=== PATIENT | female | born 1930 | race Caucasian/White ===

== ENCOUNTER 2017-07-27 17:43 | Emergency (ER) | payer OTHER ==
[~2017-07-27] VITALS: Ht 167.6 cm; Wt 76.1 kg
[2017-07-27 18:06] VITALS: TEMP 36.3; Ht 167.6 cm; Wt 76.1 kg
[2017-07-27] MEDS ORDERED: SODIUM CHLORIDE 0.9% 500ML 500 ML IV STA (18:43)
[2017-07-27] MEDS ORDERED: OPTIRAY 320 IV PRN (19:00)
[2017-07-27] MEDS ORDERED: RIVA1TAB4 PO (19:23)
[2017-07-27] MEDS ORDERED: CEFTRIAXONE SOD INJ 1 GM ADDVIAL IV STA (19:47)
[2017-07-27 20:11] LABS: BASO ABS # 0.06 K/uL (0-0.2); EOS % 2.9 %; EOS ABS # 0.17 K/uL (0-0.5); HEMATOCRIT 44.4 % (37-47); HEMOGLOBIN 15.2 g/dL (12.0-16.0); IG# 0.01 K/uL (0.00-0.02); LYMPH ABS # 2.14 K/uL (1.2-3.4); MEAN CELL VOLUME 92.7 fL (80-100); MEAN CORPUSCULAR HEMOGLOBIN 31.7 pg (25-34); MEAN CORPUSCULAR HGB CONC 34.2 g/dl (32-36); MONO % 8.9 %; MONO ABS # 0.53 K/uL (0.11-0.59); NEUT ABS # 3.03 K/uL (1.4-6.5); PLATELET COUNT 234 K/uL (130-400); RED CELL DISTRIBUTION WIDTH CV 12.8 % (11.5-14.5); RED CELL DISTRIBUTION WIDTH SD 42.9 fL (36.4-46.3); WHITE BLOOD COUNT 5.94 K/uL (4.8-10.8)
[2017-07-27 20:36] LABS: ALBUMIN 3.3 gm/dl (3.4-5.0); CALCIUM 9.1 mg/dl (8.5-10.1); CREATININE 0.84 mg/dl (0.60-1.20); TOTAL PROTEIN 8.1 gm/dl (6.4-8.2)
--- NOTE | 2017-07-27 21:42 | DIAGNOSTIC IMAGING REPORT ---
HEAD WITHOUT CONTRAST (CT) CLINICAL HISTORY: 87 years-old Female with BACON. Acute headache with weakness TECHNIQUE: Multiple axial CT images of the head were obtained without contrast. A dose lowering technique was utilized adhering to the principles of ALARA. CT DOSE: 1186.54 mGy.cm COMPARISON: None. FINDINGS: No acute intracranial hemorrhage, midline shift, intracranial mass, hydrocephalus, territorial ischemia or abnormal extra-axial collection. Mild to moderate atrophy with patchy areas of low-attenuation within the white matter of the cerebral hemispheres bilaterally suggesting chronic microvascular ischemic changes. Areas of low-attenuation within the left basal ganglia suggest areas of prior lacunar infarction. Cerebral vascular calcifications are seen at the level of the skull base. The calvarium is intact. Mastoid air cells and middle ear cavities are clear. Severe mucosal opacification of the left sphenoid sinus with mild ethmoid sinus disease. Postsurgical changes of the bilateral globes. Soft tissues are unremarkable. IMPRESSION: No acute intracranial abnormality. The above report was generated using voice recognition software. It may contain grammatical, syntax or spelling errors. Electronically signed by: Han Koroma M.D. 07/27/2017 9:41 PM Dictated Date/Time: 07/27/2017 9:38 PM
--- NOTE | 2017-07-27 21:54 | DIAGNOSTIC IMAGING REPORT ---
ABDOMEN AND PELVIS CT WITH IV CONTRAST HISTORY: Acute generalized abdominal pain abd pain TECHNIQUE: Multiaxial CT images of the abdomen and pelvis were performed following the use of intravenous contrast. A dose lowering technique was utilized adhering to the principles of ALARA. COMPARISON STUDY: None. FINDINGS: Mild subsegmental bibasilar atelectasis/scarring. There is a dependent consolidative lung with associated punctate calcifications are noted bilaterally. There is no pneumatosis or pneumoperitoneum identified. Imaged inferior cardiac chambers are enlarged. Prior cholecystectomy. No intrahepatic biliary ductal dilation or focal hepatic mass lesion. Scattered liver calcifications are noted. Calcifications are also seen throughout the spleen suggesting prior granulomatous disease. Moderate generalized pancreatic atrophy. Thickening of the left adrenal gland suggests hyperplasia. No focal abnormal amount of the right adrenal gland identified. Low attenuating 12 mm lesion of the interpolar right kidney suggests renal cyst. Right kidney and ureter are otherwise unremarkable. Multiple nonobstructing renal calculi are seen throughout the left kidney largest of which measures 12 mm within the inferior pole. Cystic low attenuating lesions about the left kidney measuring up to 6.4 cm suggests renal sinus cysts with dilated renal pelvis thought to be less likely. The left ureter is unremarkable. Urinary bladder is partially decompressed. Pelvic structures are partially secured from right hip arthroplasty streak artifact. Moderate atherosclerosis with tortuosity of the aorta. No aneurysm. No bulky adenopathy. There is no bowel obstruction or focal bowel wall thickening identified. Lateral abdominal wall hernia of the left lower quadrant is noted, diastases 4.1 cm containing a nonobstructed loop of descending colon as well as adjacent mesenteric fat. Diastases recti. No ascites or significant inflammatory changes of the abdomen or pelvis. Severe degenerative changes about the pubic symphysis with degenerative pannus. Moderate degenerative changes of the bilateral SI joints. Severe multilevel facet arthrosis. Multilevel intervertebral disc space narrowing. Grade 1 anterolisthesis L4 on L5 is likely secondary to long-standing facet disease. IMPRESSION: 1. No acute intra-abdominal or intrapelvic abnormality identified. 2. Lateral abdominal wall hernia of the left lower quadrant contains a nonobstructed loop of descending colon. No bowel obstruction or focal bowel wall thickening. 3. Cystic lesions about the left kidney measuring up to 6.4 cm suggests renal sinus cysts with dilated renal pelvis thought to be less likely. 4. Multiple nonobstructing left-sided renal calculi without hydronephrosis or ureteral calculi. 5. Prior cholecystectomy. Electronically signed by: Han Koroma M.D. 07/27/2017 9:53 PM Dictated Date/Time: 07/27/2017 9:43 PM
[2017-07-27] MEDS ORDERED: CEFD1CAP14 PO (23:02)
[2017-07-27 23:24] VITALS: BP 143/78; PULSE 80; O2SAT 97
--- NOTE | 2017-07-28 00:08 | EMERGENCY ROOM VISIT NOTE ---
History Report prepared by Kandaceibbjorn: Ayden Fong Under the Supervision of: Dr. Nikita Tucker D.O. First contact with patient: 18:31 Chief Complaint: URINARY SYMPTOMS Stated Complaint: HEAD, BLADDER INFECTION, WEAK/SICK Nursing Triage Summary: Patient was on ABX for bladder infection finished 4 days ago. Continues with urinary frequency, fatigue and generally feeling unwell. History of Present Illness The patient is a 87 year old female who presents to the Emergency Room with complaints of worsening fatigue that started three days ago. The patient states that whenever she urinates she experiences a shooting sharp pain up her abdomen. She reports that she has also been urinating frequently. The patient states that she was recently put on antibiotics for a bladder infection, which she finished 6 days ago. She reports that her urinary frequency had resolved. The patient states that she began to experience fatigue which worsened over the next couple of days, and a headache. The patient reports that she is currently experiencing a headache and fatigue. She reports that she has also been nauseous. The patient states that her last bowel movement was yesterday, which was normal. She denies pain or burning with urination, open wounds or sores, focal weakness in her legs, headache, change in vision, fevers, chest pain, shortness of breath, vomiting, diarrhea, and melena. Source of History: patient Onset: three days ago Position: other (global) Quality: other (fatigue) Timing: worsening Associated Symptoms: + headache, + nausea, + abdominal pain, + urinary symptoms (resolved), No fevers, No cough, No chest pain, No SOB, No vomiting, No melena, No diarrhea Review of Systems See HPI for pertinent positives & negatives. A total of 10 systems reviewed and were otherwise negative. Past Medical & Surgical Medical Problems: (1) DVT (deep venous thrombosis) (2) HTN (hypertension) Surgical Problems: (1) H/O: hysterectomy (2) Kidney stone Family History FH: cancer FH: gallbladder disease Kidney disease Kidney stones Social History Smoking Status: Never Smoker Smokeless Tobacco Use: No Alcohol Use: none Drug Use: none Marital Status: Housing Status: lives alone Occupation Status: retired Current/Historical Medications Scheduled Cefdinir (Omnicef), 300 MG PO Q12H Rivaroxaban (Xarelto), 20 MG PO DAILY Allergies Coded Allergies: Ibuprofen (Unverified Adverse Reaction, Severe, SWELLING OF THE MOUTH, ) Physical Exam Vital Signs Date Time Temp Pulse Resp B/P (MAP) Pulse Ox O2 Delivery O2 Flow Rate FiO2 07/27/17 23:24 80 18 143/78 97 Room Air 07/27/17 21:46 78 14 152/101 98 Room Air 07/27/17 20:05 68 16 168/97 96 Room Air 07/27/17 18:06 36.3 71 16 168/85 95 Room Air Physical Exam GENERAL: Sitting up in bed, alert, well appearing, well nourished, no distress, non-toxic EYE EXAM: normal conjunctiva. PERRL and EOM's intact. OROPHARYNX: no exudate, no erythema, lips, buccal mucosa, and tongue normal and mucous membranes are moist NECK: supple, no nuchal rigidity, no adenopathy, non-tender LUNGS: Clear to auscultation. Normal chest wall mechanics HEART: no murmurs, S1 normal and S2 normal ABDOMEN: abdomen soft, non-tender, normo-active bowel sounds, no masses, no rebound or guarding. BACK: Back is symmetrical on inspection and there is no deformity, no midline tenderness, no CVA tenderness. SKIN: no rashes and no bruising UPPER EXTREMITIES: upper extremities are grossly normal. LOWER EXTREMITIES: No pitting edema. NEURO EXAM: Normal sensorium, cranial nerves II-XII grossly intact, normal speech, no gross weakness of arms, no gross weakness of legs. No drift. Finger to nose intact. Gross sensation intact. Ambulates without difficulty. Medical Decision & Procedures ER Provider Diagnostic Interpretation: Radiology results as stated below per my review and the radiologist's interpretation: HEAD WITHOUT CONTRAST (CT) CLINICAL HISTORY: 87 years-old Female with BACON. Acute headache with weakness TECHNIQUE: Multiple axial CT images of the head were obtained without contrast. A dose lowering technique was utilized adhering to the principles of ALARA. CT DOSE: 1186.54 mGy.cm COMPARISON: None. FINDINGS: No acute intracranial hemorrhage, midline shift, intracranial mass, hydrocephalus, territorial ischemia or abnormal extra-axial collection. Mild to moderate atrophy with patchy areas of low-attenuation within the white matter of the cerebral hemispheres bilaterally suggesting chronic microvascular ischemic changes. Areas of low-attenuation within the left basal ganglia suggest areas of prior lacunar infarction. Cerebral vascular calcifications are seen at the level of the skull base. The calvarium is intact. Mastoid air cells and middle ear cavities are clear. Severe mucosal opacification of the left sphenoid sinus with mild ethmoid sinus disease. Postsurgical changes of the bilateral globes. Soft tissues are unremarkable. IMPRESSION: No acute intracranial abnormality. The above report was generated using voice recognition software. It may contain grammatical, syntax or spelling errors. Electronically signed by: Han Koroma M.D. 07/27/2017 9:41 PM Dictated Date/Time: 07/27/2017 9:38 PM A[address]OMEN AND PELVIS CT WITH IV CONTRAST HISTORY: Acute generalized abdominal pain abd pain TECHNIQUE: Multiaxial CT images of the abdomen and pelvis were performed following the use of intravenous contrast. A dose lowering technique was utilized adhering to the principles of ALARA. COMPARISON STUDY: None. FINDINGS: Mild subsegmental bibasilar atelectasis/scarring. There is a dependent consolidative lung with associated punctate calcifications are noted bilaterally. There is no pneumatosis or pneumoperitoneum identified. Imaged inferior cardiac chambers are enlarged. Prior cholecystectomy. No intrahepatic biliary ductal dilation or focal hepatic mass lesion. Scattered liver calcifications are noted. Calcifications are also seen throughout the spleen suggesting prior granulomatous disease. Moderate generalized pancreatic atrophy. Thickening of the left adrenal gland suggests hyperplasia. No focal abnormal amount of the right adrenal gland identified. Low attenuating 12 mm lesion of the interpolar right kidney suggests renal cyst. Right kidney and ureter are otherwise unremarkable. Multiple nonobstructing renal calculi are seen throughout the left kidney largest of which measures 12 mm within the inferior pole. Cystic low attenuating lesions about the left kidney measuring up to 6.4 cm suggests renal sinus cysts with dilated renal pelvis thought to be less likely. The left ureter is unremarkable. Urinary bladder is partially decompressed. Pelvic structures are partially secured from right hip arthroplasty streak artifact. Moderate atherosclerosis with tortuosity of the aorta. No aneurysm. No bulky adenopathy. There is no bowel obstruction or focal bowel wall thickening identified. Lateral abdominal wall hernia of the left lower quadrant is noted, diastases 4.1 cm containing a nonobstructed loop of descending colon as well as adjacent mesenteric fat. Diastases recti. No ascites or significant inflammatory changes of the abdomen or pelvis. Severe degenerative changes about the pubic symphysis with degenerative pannus. Moderate degenerative changes of the bilateral SI joints. Severe multilevel facet arthrosis. Multilevel intervertebral disc space narrowing. Grade 1 anterolisthesis L4 on L5 is likely secondary to long-standing facet disease. IMPRESSION: 1. No acute intra-abdominal or intrapelvic abnormality identified. 2. Lateral abdominal wall hernia of the left lower quadrant contains a nonobstructed loop of descending colon. No bowel obstruction or focal bowel wall thickening. 3. Cystic lesions about the left kidney measuring up to 6.4 cm suggests renal sinus cysts with dilated renal pelvis thought to be less likely. 4. Multiple nonobstructing left-sided renal calculi without hydronephrosis or ureteral calculi. 5. Prior cholecystectomy. Electronically signed by: Han Koroma M.D. 07/27/2017 9:53 PM Dictated Date/Time: 07/27/2017 9:43 PM Laboratory Results 07/27/17 19:50 Red Blood Count 4.79, Mean Corpuscular Volume 92.7, Mean Corpuscular Hemoglobin 31.7, Mean Corpuscular Hemoglobin Concent 34.2, Mean Platelet Volume 10.0, Neutrophils (%) (Auto) 51.0, Lymphocytes (%) (Auto) 36.0, Monocytes (%) (Auto) 8.9, Eosinophils (%) (Auto) 2.9, Basophils (%) (Auto) 1.0, Neutrophils # (Auto) 3.03, Lymphocytes # (Auto) 2.14, Monocytes # (Auto) 0.53, Eosinophils # (Auto) 0.17, Basophils # (Auto) 0.06 07/27/17 19:50 Test 07/27/17 19:00 07/27/17 19:50 Urine Color YELLOW Urine Appearance TURBID (CLEAR) Urine pH 5.5 (4.5-7.5) Urine Specific [place] 1.009 (1.000-1.030) Urine Protein NEG (NEG) Urine Glucose (UA) NEG (NEG) Urine Ketones NEG (NEG) Urine Occult Blood 3+ (NEG) Urine Nitrite POS (NEG) Urine Bilirubin NEG (NEG) Urine Urobilinogen NEG (NEG) Urine Leukocyte Esterase LARGE (NEG) Urine WBC (Auto) >30 /hpf (0-5) Urine RBC (Auto) 5-10 /hpf (0-4) Urine Hyaline Casts (Auto) 1-5 /lpf (0-5) Urine Epithelial Cells (Auto) 10-20 /lpf (0-5) Urine Bacteria (Auto) 4+ (NEG) Urine Sperm (Auto) White Blood Count 5.94 K/uL (4.8-10.8) Red Blood Count 4.79 M/uL (4.2-5.4) Hemoglobin 15.2 g/dL (12.0-16.0) Hematocrit 44.4 % (37-47) Mean Corpuscular Volume 92.7 fL (80-100) Mean Corpuscular Hemoglobin 31.7 pg (25-34) Mean Corpuscular Hemoglobin Concent 34.2 g/dl (32-36) Platelet Count 234 K/uL (130-400) Mean Platelet Volume 10.0 fL (7.4-10.4) Neutrophils (%) (Auto) 51.0 % Lymphocytes (%) (Auto) 36.0 % Monocytes (%) (Auto) 8.9 % Eosinophils (%) (Auto) 2.9 % Basophils (%) (Auto) 1.0 % Neutrophils # (Auto) 3.03 K/uL (1.4-6.5) Lymphocytes # (Auto) 2.14 K/uL (1.2-3.4) Monocytes # (Auto) 0.53 K/uL (0.11-0.59) Eosinophils # (Auto) 0.17 K/uL (0-0.5) Basophils # (Auto) 0.06 K/uL (0-0.2) RDW Standard Deviation 42.9 fL (36.4-46.3) RDW Coefficient of Variation 12.8 % (11.5-14.5) Immature Granulocyte % (Auto) 0.2 % Immature Granulocyte # (Auto) 0.01 K/uL (0.00-0.02) Anion Gap 7.0 mmol/L (3-11) Est Creatinine Clear Calc Drug Dose 51.0 ml/min Estimated GFR () 73.5 Estimated GFR (Non- 63.4 BUN/Creatinine Ratio 25.4 (10-20) Calcium Level 9.1 mg/dl (8.5-10.1) Total Bilirubin 0.6 mg/dl (0.2-1) Direct Bilirubin mg/dl (0-0.2) Aspartate Amino Transf (AST/SGOT) U/L (15-37) Alanine Aminotransferase (ALT/SGPT) 23 U/L (12-78) Alkaline Phosphatase 45 U/L (45-117) Total Protein 8.1 gm/dl (6.4-8.2) Albumin 3.3 gm/dl (3.4-5.0) Lipase 101 U/L (73-393) Laboratory results per my review. Medications Administered Medications (Trade) Dose Ordered Sig/Irais Route Start Time Stop Time Status Last Admin Dose Admin Sodium Chloride 500 ml @ 999 mls/hr Q31M STAT IV 07/27/17 18:43 07/27/17 19:13 DC 07/27/17 18:43 999 MLS/HR Ceftriaxone Sodium (Rocephin Inj) 1 gm NOW STAT IV 07/27/17 19:47 07/27/17 19:48 DC 07/27/17 20:33 1 GM ED Course ED COURSE: Vital signs were reviewed and showed hypertension The patients medical record was reviewed The above diagnostic studies were performed and reviewed. ED treatments and interventions as stated above. 1830: The patient was evaluated in room A10. A complete history and physical examination was performed. 1842: Ordered Sodium Chloride 500 ml @ 999 mls/hr IV. 1946: Ordered Rocephin Injection 1 gm IV. 2044: I reevaluated the patient and she is doing well. She is heading over to CT. 2256: Upon reevaluation, the patient is resting comfortably. I discussed my findings with the patient and she understands and agrees with the treatment plan. Based on the patients age, coexisting illnesses, exam and lab findings the decision to treat as an outpatient was made. The patient remained stable while under my care. The patient appeared well at the time of discharge. Medical Decision Differential Diagnosis includes but is not limited to dehydration, stroke, anemia, hypoglycemia, hyponatremia, hypernatremia, urinary tract infection, pneumonia, bronchitis, sepsis, gastroenteritis, additional abdominal pathology, metabolic abnormalities and infections. Patient is an 87-year-old female presents to ER for urinary frequency and dysuria. The dysuria has partially resolved. She was placed on Keflex was taking this 4 times a day several weeks ago. 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 She notes this feels like her typical UTIs. CBC along with BMP , LFTs and lipase was unremarkable. UA is remarkable for UTI. Patient was given IV Rocephin. CT abd/pelvis was negative. CT head was negative as well. Patient recently fell Keflex and since I have no previous cultures I assume that the PCP intentionally placed her on a cephalosporin. Consequently I gave her third-generation cephalosporin discharge her to follow-up with PCP tomorrow. She will also need follow-up with urology. Discussed with Pt concerning signs and symptoms to watch out for. Pt was instructed to follow up with their PCP and discussed with the patient their option to return to the ED at anytime for persistent or worsening symptoms. The appropriate anticipatory guidance and out-patient management, including indications for return to the emergency department, were explained at length to the patient and understood. Medication Reconcilliation Current Medication List: was personally reviewed by me Blood Pressure Screening Patient's blood pressure: Elevated blood pressure Blood pressure disposition: Referred to PCP Impression Primary Impression: Urinary tract infection Scribe Attestation The scribe's documentation has been prepared under my direction and personally reviewed by me in its entirety. I confirm that the note above accurately reflects all work, treatment, procedures, and medical decision making performed by me. Departure Information Dispostion Home / Self-Care Prescriptions Cefdinir (Omnicef) 300 Mg Cap 300 MG PO Q12H for 10 Days, #20 CAP Prov: Nikita Tucker, DO 07/27/17 Referrals No Doctor, Assigned (PCP) Forms HOME CARE DOCUMENTATION FORM, IMPORTANT VISIT INFORMATION Patient Instructions ED UTI Cystitis Female, My [facility] Additional Instructions Please follow up with your primary care doctor with in the next 24 hours. Any worsening of your symptoms, please return to the ED immediately. This includes any fevers greater than 100.4, worsening pain, chest pain, shortness breath, persistent nausea, vomiting, unable to eat or drink, or any other concerning signs or symptoms from your standpoint. Please take antibiotics as prescribed and touch base with her primary care doctor tomorrow morning in regards to previous cultures. Problem Qualifiers Primary Impression: Urinary tract infection Urinary tract infection type: acute cystitis Hematuria presence: with hematuria Qualified Codes: N30.01 - Acute cystitis with hematuria
== END 2017-07-27 23:36 | disposition home or self-care (01) ==
LOC: C.EDB 17:45 → C.EDA 23:36
DX: N30.01 Acute cystitis with hematuria (principal); I10 Essential (primary) hypertension; Z86.718 Personal history of other venous thrombosis and embolism; Z87.442 Personal history of urinary calculi; Z90.710 Acquired absence of both cervix and uterus; Z84.1 Family history of disorders of kidney and ureter; Z79.01 Long term (current) use of anticoagulants